=== PATIENT | female | born 1955 ===

== ENCOUNTER → 2022-11-25 12:10 | Outpatient (REF) | payer BC, SELFPAY ==
--- NOTE | 2022-11-25 12:18 | CA_ITS ---
Transthoracic Echocardiogram Patient (Last, First, Middle): Kinza Medley, Gender: Female Date of : 1955 Age: 67 Procedure Date: 11/25/2022 Procedure Type: Transthoracic Echocardiogram Location: [facility] Height: 154.94 cm Weight: 73.03 kg BSA: 1.72 m2 Heart Rate: 57 bpm BP: 118 / 72 mmHg Brewery Pumper: SB Referring MD: Reilly Duarte MD Pearl Maker: Kumar Sosa MD Symptoms: ABNORMAL EKG Study Quality: Adequate ECG Rhythm: Bradycardia Conclusions: - Essentially normal study for the age Findings Left Ventricle Normal left ventricular size, thickness, and systolic function. The visually estimated ejection fraction is between 60-65%. Spectral Doppler is indicative of an impaired relaxation filling pattern. E/E prime ratio is between 8 and 15 consistent with indeterminate filling pressures. Peak GLSis 21.6%, within normal limits. Right Ventricle Normal right ventricular cavity size and systolic function. Atria The left atrium is normal in size. 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 There is no evidence of interatrial shunt. The right atrium is normal in size. Aortic Valve Normal aortic valve structure and function. There is no aortic valve stenosis. There is no aortic valve regurgitation. Mitral Valve There is mild anterior and posterior mitral leaflet thickening. There is trace mitral valve regurgitation. There is no mitral valve stenosis. Pulmonic Valve The pulmonic valve is likely normal. There is trace pulmonic valve regurgitation. Tricuspid Valve Normal tricuspid valve structure. There is trace tricuspid valve regurgitation. Normal right atrial pressure. There is no evidence of pulmonary hypertension. Great Vessels All visible segments of the aorta are normal in size. The pulmonary artery was not well visualized. Venous The inferior vena cava is normal in size and collapses greater than 50% with inspiration. Pericardium/Pleural There is no evidence of pericardial effusion. Prior Study Comparison No prior study available for comparison. Measurements 2D Linear Measurements IVSd: 0.65 0.6-0.9/0.6-1.0 cm LVIDd: 4.77 3.9-5.3/4.2-5.9 cm LVIDd Index: 2.77 2.4-3.2/2.2-3.1 cm/m2 LVIDs: 3.52 2.0-3.6 cm LVPWd: 0.61 0.7-1.1 cm LA Diam: 3.60 2.7-3.8/3.0-4.0 cm LAIDs Index: 2.09 1.5-2.3 cm/m2 LV Mass: 114.13 67-162/88-224 g LV Mass Index: 66.36 43-95/49-115 g/m2 LVOT Diam: 1.90 3.0+(-)1.3 cm 2D Systolic Function EF 4C: 56.30 >55% EF 2C: 70.90 >55% EF BiP: 63.70 >55% Mitral Valve MV Pk E: 0.87 MV PK A: 0.92 MV Decel Time: 283.00 E/A: 0.90 E'Lateral: 8.38 E'Medial: 7.83 E/E' Med: 11.10 E/E' Lat: 10.40 PHT: 83.00 MVA PHT: 2.65 Decel Webster: 3.07 Aortic Valve AoV Pk Daniel: 1.68 AoV Pk Grad: 11.00 VAUGHN: 2.27 LVOT LVOT Pk Daniel: 1.36 LVOT Mn Daniel: 0.92 LVOT VTI: 0.30 LVOT Pk Grad: 7.00 LVOT Mn Grad: 4.00 LVOT Diam: 1.90 LVOT Area: 2.84 Diastolic Function MV Pk E: 0.87 MV Pk A: 0.92 E/A: 0.90 E'Medial: 7.83 E/E' Med: 11.10 E' Laterial: 8.38 E/E' Lat: 10.40 Right Ventricle TAPSE (mm): 23.50 TVS' Daniel: 11.50 Tricuspid Valve TR Pk Daniel: 2.09 TR Pk Grad: 17.00 RA Press: 3.00 RVSP: 20.00 Great Vessels Aorta Sinus of Valsalva: 2.70 2.0-3.5 cm Ao Asc: 2.70 2.1-3.4 cm Pulmonary Veins Pulm Vein S/D 1.50 Pulmonary Valve PV Pk Daniel: 1.00 Peak PV Grad: 4.00 Updated in Other Vendor System with Status of Final Kumar Sosa MD electronically signed on 11/25/2022 2:35:01 PM with status of Final
== END ==
LOC: HO.CARD 12:10
PROVIDERS: Visit Provider Internal Medicine Cardiovascular Disease
DX: R94.31 Abnormal electrocardiogram [ECG] [EKG] (principal)
CPT/HCPCS: 93306; 93356